=== PATIENT | male | born 1955 | race African-American/Black ===

== ENCOUNTER 2019-08-24 10:31 | Day surgery (SDC) | payer MEDICAID ==
[~2019-08-24] VITALS: Ht 188 cm; Wt 115.7 kg
[~2019-08-24 10:31] MED LIST: BALANCED SALT IRRIG SOLN 15ML ONE; BALANCED SALT IRRIG SOLN COMB1 500ML OP ONE; CIPROFLOXACIN 0.3% OPHTH SOLN 2.5ML ONE; GABA-531 PO; GLIP5TAB12 PO; LIDOCAINE HCL/PF 2% 20 MG/ML 10ML VIAL ONE; METF-414 PO; NEO/POLYMYX B SULF/DEXAMETH OPHTH OINT 3.5GM ONE; PREDNISOLONE ACETATE 1% OPHTH DROPS 5ML ONE; RIVA10TA PO; TETRACAINE 0.5% OPHTH DROPS 4ML ONE
[2019-08-24] MEDS ORDERED: SODIUM CHLORIDE 0.9% 1,000 ML IV SCH (11:00)
[2019-08-24] MEDS ORDERED: CYCLOPENTOLATE HCL 1% OPHTH DROPS 2ML LEFTEYE NR (11:00)
[2019-08-24] MEDS ORDERED: PHENYLEPHRINE HCL 10% OPHTH DROPS 5ML LEFTEYE NR (11:00)
[2019-08-24] MEDS ORDERED: TROPICAMIDE 1% OPHTH DROPS 15ML LEFTEYE NR (11:00)
[2019-08-24] MEDS ORDERED: HYALURONATE SODIUM 14 MG/ML 0.85ML SYRINGE IO ONE (11:03)
[2019-08-24] MEDS ORDERED: FENTANYL CITRATE/PF 50MCG/ML 2ML VIAL ONE (11:39)
[2019-08-24] MEDS ORDERED: MIDAZOLAM HCL 2 MG/2 ML VIAL ONE (11:39)
[2019-08-24] MEDS ORDERED: GLYB5TAB7 PO (11:43)
[2019-08-24] MEDS ORDERED: PROPOFOL 200MG/20ML VIAL IV ONE (11:48)
[2019-08-24] MEDS ORDERED: KETOROLAC 30MG/ML VIAL IV NR (12:43)
[2019-08-24 12:51] VITALS: BP 106/64
== END 2019-08-24 13:30 | disposition home or self-care (01) ==
LOC: OR 10:31
PROVIDERS: ATTEND Ophthalmology
DX: E11.36 Type 2 diabetes mellitus with diabetic cataract (principal); H25.012 Cortical age-related cataract, left eye; E11.29 Type 2 diabetes mellitus with other diabetic kidney complication; F32.9 Major depressive disorder, single episode, unspecified; M19.90 Unspecified osteoarthritis, unspecified site; E66.01 Morbid (severe) obesity due to excess calories; E11.40 Type 2 diabetes mellitus with diabetic neuropathy, unspecified; Z82.49 Family history of ischemic heart disease and other diseases of the circulatory system; Z79.899 Other long term (current) drug therapy; Z79.84 Long term (current) use of oral hypoglycemic drugs; Z79.01 Long term (current) use of anticoagulants; Z86.711 Personal history of pulmonary embolism; Z86.718 Personal history of other venous thrombosis and embolism; Z98.41 Cataract extraction status, right eye; Z98.890 Other specified postprocedural states; Z68.32 Body mass index [BMI] 32.0-32.9, adult
CPT/HCPCS: 66984; 82962; J1885; J2250; J3010; J3490; V2632; J2704